=== PATIENT | female | born 1985 ===

== ENCOUNTER 2023-05-18 08:35 | Emergency (ER) | payer MEDICAID ==
[~2023-05-18] VITALS: Ht 154.9 cm; Wt 63.6 kg
[2023-05-18 08:44] VITALS: BP 114/79; PULSE 68; TEMP 97.5; O2SAT 100
[2023-05-18] MEDS ORDERED: IBUP-1986 PO ×2 (09:00)
[2023-05-18] MEDS ORDERED: CYCL-394 PO ×2 (09:00)
[2023-05-18] MEDS ORDERED: fentaNYL/PF 50MCG/1 ML 2ML syringe IV ONE (09:35)
[2023-05-18] MEDS ORDERED: oxyCODONE/APAP 5-325mg tablet PO ONE (10:25)
[2023-05-18] MEDS ORDERED: ondansetron 4mg rapidly disintigrating tab PO ONE (10:25)
[2023-05-18 12:43] LABS: BILIRUBIN,URINE NEGATIVE (Neg); CLARITY,URINE SLIGHTLY CLOUDY (Clear); COLOR,URINE YELLOW (Yellow); GLUCOSE, URINE NEGATIVE (Neg); KETONES,URINE NEGATIVE (Neg); LEUKOCYTE ESTERASE ,URINE NEGATIVE (Neg); NITRITES, URINE NEGATIVE (Neg); OCCULT BLOOD,URINE NEGATIVE (Neg); PROTEIN,URINE NEGATIVE (Neg); UROBILINOGEN,URINE 0.2 E.U/dL (0.2-1.0)
[2023-05-18 12:47] LABS: UA COLLECTION TYPE VOIDED
[2023-05-18 12:49] LABS: BACTERIA,URINE 1+ /HPF (Neg); MUCUS STRANDS NONE SEEN /LPF (Neg); RBC,URINE 0-2 /HPF (0-2); SQUAMOUS EPITHELIAL CELL,UR MANY /LPF (FEW)
[2023-05-18 12:50] LABS: YEAST FEW /HPF (NEGATIVE)
[2023-05-18] MEDS ORDERED: CIPR10DR LEFT EAR (14:03)
[2023-05-18] MEDS ORDERED: HYDR-3686 PO (14:12)
[2023-05-18] MEDS ORDERED: hydrOXYzine 25 MG tablet PO PRN (14:15)
[2023-05-18 14:52] VITALS: RESP 14
== END 2023-05-18 19:52 | disposition home or self-care (01) ==
LOC: ER 08:36 → EEVIPCON 08:36 → ER 19:52
DX: T76.21XA Adult sexual abuse, suspected, initial encounter (principal); R07.81 Pleurodynia; R07.9 Chest pain, unspecified; H57.12 Ocular pain, left eye
CPT/HCPCS: 81001; 99284; J3010